=== PATIENT | female | born 1955 | race Caucasian/White ===

== ENCOUNTER 2017-11-29 15:04 | Emergency (ER) | payer MEDICARE, MEDICAID ==
[~2017-11-29] VITALS: Ht 162.6 cm; Wt 65.8 kg
[2017-11-29 15:45] LABS: BASOPHILS # (AUTO) 0.1 X10'3 (0-0.2); BASOPHILS % (AUTO) 0.7 % (0-1); EOSINOPHILS # (AUTO) 0.2 X10'3 (0-0.9); EOSINOPHILS % (AUTO) 2.2 % (0-6); HEMATOCRIT 41.6 % (35.0-45.0); HEMOGLOBIN 14.2 g/dl (12.0-16.0); LYMPHOCYTES % (AUTO) 27.6 % (21-51); MEAN CORPUSCULAR HEMOGLOBIN 30.4 PG (27.0-31.0); MEAN CORPUSCULAR HGB CONC 34.1 % (33.0-36.5); MEAN CORPUSCULAR VOLUME 89.1 FL (78-98); MEAN PLATELET VOLUME 8.3 FL (7.4-10.4); MONOCYTES # (AUTO) 0.4 X10'3 (0-0.9); MONOCYTES % (AUTO) 5.5 % (2-12); NEUTROPHILS # (AUTO) 4.6 X10'3 (1.8-7.7); PLATELET COUNT 285 X10'3 (140-440); RED BLOOD COUNT 4.67 X10'6 (4.20-5.60); RED CELL DISTRIBUTION WIDTH 13.5 % (11.5-14.5); WHITE BLOOD COUNT 7.2 X10'3 (4.5-11.0)
[2017-11-29 16:10] LABS: ALANINE AMINOTRANSFERASE 38 U/L (12-78); ALBUMIN 4.2 G/DL (3.4-5.0); ALBUMIN/GLOBULIN RATIO 1.1 (1.1-1.5); ALKALINE PHOSPHATASE 97 IU/L (46-116); ANION GAP 14 (8-16); ASPARTATE AMINO TRANSFERASE 14 U/L (10-37); BILIRUBIN,TOTAL 0.3 MG/DL (0.1-1.0); BLOOD UREA NITROGEN 21 MG/DL (7-18); BUN/CREATININE RATIO 22.6 (6.6-38.0); CALCIUM 9.4 MG/DL (8.5-10.1); CHLORIDE 104 MMOL/L (99-107); CREATININE 0.93 MG/DL (0.40-0.90); GLUCOSE 89 MG/DL (70-104); POTASSIUM 3.8 MMOL/L (3.5-5.1); SODIUM 143 MMOL/L (135-145); TOTAL CARBON DIOXIDE 25.4 MMOL/L (24-32); TOTAL PROTEIN 8.1 G/DL (6.4-8.2); eGFR 61 ML/MIN
[2017-11-29] MEDS ORDERED: ketorolac trometh inj. 60 MG/2 ML VIAL IM ONE (17:40)
[2017-11-29] MEDS ORDERED: OMEP40CA37 PO (18:45)
[2017-11-29] MEDS ORDERED: IBUP-1985 PO (18:45)
[2017-11-29 18:57] VITALS: BP 102/69
== END 2017-11-29 18:59 | disposition home or self-care (01) ==
LOC: ER 15:04
DX: S29.012A Strain of muscle and tendon of back wall of thorax, initial encounter (principal); M81.0 Age-related osteoporosis without current pathological fracture; G43.909 Migraine, unspecified, not intractable, without status migrainosus; I95.9 Hypotension, unspecified; Z87.442 Personal history of urinary calculi; Z88.5 Allergy status to narcotic agent; Z79.899 Other long term (current) drug therapy; X58.XXXA Exposure to other specified factors, initial encounter; Y93.89 Activity, other specified; Y92.89 Other specified places as the place of occurrence of the external cause; Y99.8 Other external cause status
CPT/HCPCS: 36415; 71046; 80053; 83880; 84484; 85025; 93005; 96372; 99285; J1885

== ENCOUNTER 2021-07-02 09:40 | Inpatient (IN) | payer MEDICARE, MEDICAID ==
[~2021-07-02] VITALS: Ht 162.6 cm; Wt 65.0 kg
[~2021-07-02 09:40] MED LIST: IBUP-1985 PO
[2021-07-02] MEDS ORDERED: dexamethasone inj 8 MG in normal saline 50ml IV soln 50 ML IV SCH (11:30)
[2021-07-02 12:15] LABS: BASOPHILS % (AUTO) 0.4 % (0-1); EOSINOPHILS % (AUTO) 0 % (0-6); HEMATOCRIT 39.1 % (35.0-45.0); HEMOGLOBIN 12.9 g/dl (12.0-16.0); LYMPHOCYTES # (AUTO) 0.7 X10'3 (1.1-4.8); LYMPHOCYTES % (AUTO) 12.5 % (21-51); MEAN CORPUSCULAR HEMOGLOBIN 29.9 PG (27.0-31.0); MEAN CORPUSCULAR HGB CONC 33.1 g/dL (33.0-36.5); MEAN CORPUSCULAR VOLUME 90.6 FL (78-98); MEAN PLATELET VOLUME 9.2 FL (7.4-10.4); MONOCYTES # (AUTO) 0.3 X10'3 (0-0.9); MONOCYTES % (AUTO) 5.1 % (2-12); NEUTROPHILS # (AUTO) 4.8 X10'3 (1.8-7.7); PLATELET COUNT 206 X10'3 (140-440); RED BLOOD COUNT 4.32 X10'6 (4.20-5.60); RED CELL DISTRIBUTION WIDTH 13.4 % (11.5-14.5); WHITE BLOOD COUNT 5.8 X10'3 (4.5-11.0)
[2021-07-02 12:22] LABS: ALANINE AMINOTRANSFERASE 64 U/L (12-78); ALBUMIN 2.8 G/DL (3.4-5.0); ALBUMIN/GLOBULIN RATIO 0.8 (1.1-1.5); ALKALINE PHOSPHATASE 69 IU/L (46-116); ANION GAP 9 (8-16); ASPARTATE AMINO TRANSFERASE 61 U/L (10-37); BILIRUBIN,TOTAL 0.7 MG/DL (0.1-1.0); BLOOD UREA NITROGEN 19 MG/DL (7-18); BUN/CREATININE RATIO 20.4 (6.6-38.0); CALCIUM 8.1 MG/DL (8.5-10.1); CHLORIDE 99 MMOL/L (99-107); CREATININE 0.93 MG/DL (0.40-0.90); GLUCOSE 101 MG/DL (70-104); POTASSIUM 3.3 MMOL/L (3.5-5.1); SODIUM 135 MMOL/L (135-145); TOTAL CARBON DIOXIDE 27.5 MMOL/L (24-32); TOTAL PROTEIN 6.4 G/DL (6.4-8.2); eGFR 61 ML/MIN
[2021-07-02 12:24] LABS: C-REACTIVE PROTEIN 6.15 MG/DL (0.0-0.5)
[2021-07-02] MEDS ORDERED: ELET20TA2 PO (13:04)
[2021-07-02] MEDS ORDERED: TOP100T PO (13:04)
[2021-07-02] MEDS ORDERED: SUMAtriptan 25 MG tablet PO PRN (13:10)
[2021-07-02] MEDS ORDERED: ondansetron/PF 4mg/2ml inj IV PRN (13:15)
[2021-07-02] MEDS ORDERED: acetaminophen 325mg tablet PO PRN ×2 (13:15)
[2021-07-02] MEDS ORDERED: ALBUTEROL INHALER 1 PUFF/90 MCG INHALER IH PRN (13:15)
[2021-07-02] MEDS ORDERED: mag hydrox/Alum hydrox/simeth 30ml oral suspension PO PRN (13:15)
[2021-07-02] MEDS ORDERED: oxyCODONE/APAP 5-325mg tablet PO PRN (13:15)
[2021-07-02] MEDS ORDERED: acetaminophen 325mg tablet PO ONE (13:15)
[2021-07-02] MEDS ORDERED: magnesium 4gm in 100ml NS 100 ML IV PRN (13:15)
[2021-07-02] MEDS ORDERED: potassium Cl 20 mEq SR tablet PO PRN (13:15)
[2021-07-02] MEDS ORDERED: magnesium 2GM in 50ml NS 50 ML IV PRN (13:15)
[2021-07-02] MEDS ORDERED: oxyCODONE/APAP 10/325mg tablet PO PRN (13:15)
[2021-07-02] MEDS ORDERED: REMDESIVIR INJ 200 MG in normal saline 100ml IV soln 60 ML IV ONE (13:15)
[2021-07-02] MEDS ORDERED: bisacodyl 10mg suppository rectal RC PRN (13:15)
[2021-07-02] MEDS ORDERED: potassium Cl 40MEQ/1/2NS 520ml 520 ML IV PRN ×2 (13:15)
[2021-07-02 13:37] LABS: D-DIMER 1.12 MG/L FEU (0-0.50)
[2021-07-02] MEDS: potassium Cl 20mEq in NS 1,000 ML IV SCH ×2 (16:07→23:15)
[2021-07-02] MEDS: potassium Cl 20 mEq SR tablet PO PRN (16:08)
[2021-07-02] MEDS ORDERED: normal saline 1000ml 1,000 ML IV ONE (17:45)
[2021-07-02 20:00] VITALS: BP 116/70
[2021-07-02] MEDS: docusate sod 100mg capsule PO SCH (20:00)
[2021-07-02] MEDS: K and/or MAG REPLACEMENT MC SCH (20:00)
[2021-07-02] MEDS: enoxaparin 40mg/0.4ml syringe SQ SCH (21:53)
[2021-07-02 22:00] VITALS: BP 92/59
[2021-07-02] MEDS: dexamethasone inj 6 MG in normal saline 50ml IV soln 50 ML IV SCH (23:03)
[2021-07-03 02:00] VITALS: BP 97/62
[2021-07-03 05:59] VITALS: BP 92/57
--- NOTE | 2021-07-03 07:00 | NUR ---
Patient in room [facility]TH[facility] 4009. I have received report from Shanel RN and had the opportunity to ask questions and assume patient care.
[2021-07-03] MEDS: K and/or MAG REPLACEMENT MC SCH ×2 (08:00→20:00)
[2021-07-03] MEDS: docusate sod 100mg capsule PO SCH ×2 (08:00→20:00)
[2021-07-03 08:16] LABS: EOSINOPHILS % (AUTO) 0 % (0-6); LYMPHOCYTES # (AUTO) 0.7 X10'3 (1.1-4.8); MONOCYTES # (AUTO) 0.2 X10'3 (0-0.9); NEUTROPHILS # (AUTO) 2.4 X10'3 (1.8-7.7)
[2021-07-03 08:18] LABS: BASOPHILS % (AUTO) 0.8 % (0-1); HEMATOCRIT 38.4 % (35.0-45.0); HEMOGLOBIN 12.5 g/dl (12.0-16.0); LYMPHOCYTES % (AUTO) 21.2 % (21-51); MEAN CORPUSCULAR HEMOGLOBIN 29.5 PG (27.0-31.0); MEAN CORPUSCULAR HGB CONC 32.6 g/dL (33.0-36.5); MEAN CORPUSCULAR VOLUME 90.5 FL (78-98); MEAN PLATELET VOLUME 9.1 FL (7.4-10.4); PLATELET COUNT 268 X10'3 (140-440); RED BLOOD COUNT 4.25 X10'6 (4.20-5.60); RED CELL DISTRIBUTION WIDTH 13.4 % (11.5-14.5); WHITE BLOOD COUNT 3.3 X10'3 (4.5-11.0)
--- NOTE | 2021-07-03 08:32 | NUR ---
PHONED PHARMACY, RN STILL WAITING FOR REMDESIVIR AND DECADRON IV INFUSIONS- THEY WILL BRING TO FLOOR IN A BIT. WILL CONTINUE TO MONITOR.
[2021-07-03] MEDS: potassium Cl 20mEq in NS 1,000 ML IV SCH ×2 (08:36→20:07)
[2021-07-03] MEDS: topiramate 100mg tablet PO SCH (08:37)
[2021-07-03] MEDS: potassium Cl 20 mEq SR tablet PO PRN (08:39)
[2021-07-03 08:48] LABS: ALANINE AMINOTRANSFERASE 86 U/L (12-78); ALBUMIN 2.3 G/DL (3.4-5.0); ALBUMIN/GLOBULIN RATIO 0.6 (1.1-1.5); ALKALINE PHOSPHATASE 65 IU/L (46-116); ANION GAP 13 (8-16); ASPARTATE AMINO TRANSFERASE 61 U/L (10-37); BILIRUBIN,TOTAL 0.5 MG/DL (0.1-1.0); BLOOD UREA NITROGEN 18 MG/DL (7-18); BUN/CREATININE RATIO 25.4 (6.6-38.0); C-REACTIVE PROTEIN 7.21 MG/DL (0.0-0.5); CHLORIDE 106 MMOL/L (99-107); CREATININE 0.71 MG/DL (0.40-0.90); GLUCOSE 117 MG/DL (70-104); MAGNESIUM 2.7 MG/DL (1.5-2.4); POTASSIUM 3.8 MMOL/L (3.5-5.1); SODIUM 143 MMOL/L (135-145); TOTAL PROTEIN 6.1 G/DL (6.4-8.2); eGFR 83 ML/MIN
[2021-07-03 09:09] LABS: D-DIMER 0.75 MG/L FEU (0-0.50)
[2021-07-03] MEDS: REMDESIVIR INJ 100 MG in normal saline 100ml IV soln 80 ML IV SCH (09:32)
[2021-07-03] MEDS: dexamethasone inj 6 MG in normal saline 50ml IV soln 50 ML IV SCH ×2 (09:32→20:10)
[2021-07-03 10:00] VITALS: BP 95/59
--- NOTE | 2021-07-03 10:13 | NUR ---
Malnutrition Consult: Pt admit DX COVID-19 PNA w/ acute respiratory failure per DO note. Hx fatigue, N/V, and diarrhea 10 days [employer] in addition to little/no PO intake 6-7 days [employer]NA[employer] per EMR. RD attempted to contact pt via TC however no answer. RD also attempted to contact pt child and SO using contact information in chart however unable to reach anyone to obtain additional wt/PO hx. No scaled wt this admit. 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 Pt has no edema or wt hx though given current mild weakness in addition to reported PO hx meets minimum non-severe malnutrition criteria; DO notified. PO 25% first regular diet meal last night w/ diarrhea persisting per EMR; may benefit from anti-diarrheal if DO agreeable. RD recommends Ensure Enlive TIDWM for additional protein/kcals given inadequate intake hx; DO notified. Currently on 4L NC per EMR. Will continue to monitor for additional protein/kcal needs this admit. Rec: 1. continue regular diet; encourage PO 2. Ensure Enlive TIDWM; pending physician verification in EMR. IF PO intake improves consider change to Ensure High Protein 3. bowel care per rx; consider anti-diarrheal if diarrhea persists 4. scaled wt this admit; subsequent weekly wts Addendum: 07/03/21 at [address] Amended: Links added.
--- NOTE | 2021-07-03 11:24 | NUR ---
SPOKE WITH FAMILY MEMBER, GILBERT, WITH PT'S PERMISSION- UPDATE GIVEN.
[2021-07-03] MEDS ORDERED: lactose-reduced food (Ensure Enlive) - 237ml bottle PO SCH (13:00)
[2021-07-03 14:00] VITALS: BP 95/52
[2021-07-03] MEDS: valacyclovir 500mg tablet PO SCH (16:53)
[2021-07-03 18:00] VITALS: BP 95/59
--- NOTE | 2021-07-03 18:31 | NUR ---
Problems reprioritized. Patient report given, questions answered & plan of care reviewed with Maria D SCHAEFFER.
[2021-07-03] MEDS: enoxaparin 40mg/0.4ml syringe SQ SCH (20:10)
[2021-07-03 22:00] VITALS: BP 85/51
[2021-07-04] MEDS: valacyclovir 500mg tablet PO SCH ×4 (00:04→23:50)
[2021-07-04 02:00] VITALS: BP 84/48
[2021-07-04 06:00] VITALS: BP 80/47
--- NOTE | 2021-07-04 06:28 | NUR ---
Patient in room [facility]TH[facility] 4009. I have received report from MAKSIM Killian and had the opportunity to ask questions and assume patient care.
--- NOTE | 2021-07-04 06:37 | NUR ---
Problems reprioritized. Patient report given, questions answered & plan of care reviewed with MAKSIM Coy.
[2021-07-04] MEDS: K and/or MAG REPLACEMENT MC SCH ×2 (08:00→20:00)
[2021-07-04] MEDS: docusate sod 100mg capsule PO SCH ×2 (08:00→20:18)
[2021-07-04] MEDS: dexamethasone inj 6 MG in normal saline 50ml IV soln 50 ML IV SCH ×2 (08:27→20:18)
[2021-07-04] MEDS: potassium Cl 20mEq in NS 1,000 ML IV SCH ×3 (08:27→23:53)
[2021-07-04] MEDS: REMDESIVIR INJ 100 MG in normal saline 100ml IV soln 80 ML IV SCH (08:27)
[2021-07-04] MEDS: topiramate 100mg tablet PO SCH (08:27)
[2021-07-04 08:50] LABS: BASOPHILS % (AUTO) 0.1 % (0-1); EOSINOPHILS % (AUTO) 0 % (0-6); HEMATOCRIT 38.1 % (35.0-45.0); HEMOGLOBIN 12.5 g/dl (12.0-16.0); LYMPHOCYTES # (AUTO) 0.9 X10'3 (1.1-4.8); LYMPHOCYTES % (AUTO) 10.9 % (21-51); MEAN CORPUSCULAR HEMOGLOBIN 29.6 PG (27.0-31.0); MEAN CORPUSCULAR HGB CONC 32.8 g/dL (33.0-36.5); MEAN CORPUSCULAR VOLUME 90.1 FL (78-98); MEAN PLATELET VOLUME 9.7 FL (7.4-10.4); MONOCYTES # (AUTO) 0.5 X10'3 (0-0.9); MONOCYTES % (AUTO) 5.3 % (2-12); NEUTROPHILS # (AUTO) 7.2 X10'3 (1.8-7.7); NEUTROPHILS % (AUTO) 83.7 % (42-75); PLATELET COUNT 316 X10'3 (140-440); RED BLOOD COUNT 4.23 X10'6 (4.20-5.60); RED CELL DISTRIBUTION WIDTH 13.7 % (11.5-14.5); WHITE BLOOD COUNT 8.6 X10'3 (4.5-11.0)
[2021-07-04 08:55] LABS: D-DIMER 0.67 MG/L FEU (0-0.50)
[2021-07-04 09:24] LABS: ALANINE AMINOTRANSFERASE 243 U/L (12-78); ALBUMIN 2.5 G/DL (3.4-5.0); ALBUMIN/GLOBULIN RATIO 0.8 (1.1-1.5); ALKALINE PHOSPHATASE 77 IU/L (46-116); ANION GAP 10 (8-16); ASPARTATE AMINO TRANSFERASE 197 U/L (10-37); BILIRUBIN,TOTAL 0.5 MG/DL (0.1-1.0); BLOOD UREA NITROGEN 18 MG/DL (7-18); BUN/CREATININE RATIO 27.3 (6.6-38.0); C-REACTIVE PROTEIN 3.45 MG/DL (0.0-0.5); CALCIUM 8.4 MG/DL (8.5-10.1); CHLORIDE 110 MMOL/L (99-107); CREATININE 0.66 MG/DL (0.40-0.90); GLUCOSE 140 MG/DL (70-104); MAGNESIUM 2.5 MG/DL (1.5-2.4); SODIUM 142 MMOL/L (135-145); TOTAL CARBON DIOXIDE 22.1 MMOL/L (24-32); TOTAL PROTEIN 5.8 G/DL (6.4-8.2); eGFR 90 ML/MIN
[2021-07-04 10:00] VITALS: BP 88/52
[2021-07-04 14:00] VITALS: BP 85/46
--- NOTE | 2021-07-04 17:42 | NUR ---
Pt refused 1700 vital signs. Addendum: 07/04/21 at 1743 by Anneliese Hernandez RN Amended: Links added.
--- NOTE | 2021-07-04 18:35 | NUR ---
Problems reprioritized. Patient report given, questions answered & plan of care reviewed with MAKSIM Killian and aaliyah Rush RN.
[2021-07-04] MEDS: enoxaparin 40mg/0.4ml syringe SQ SCH (20:18)
[2021-07-04 22:00] VITALS: BP 85/49
[2021-07-05 02:00] VITALS: BP 89/42
--- NOTE | 2021-07-05 06:27 | NUR ---
Problems reprioritized. Patient report given, questions answered & plan of care reviewed with MAKSIM Gomez.
--- NOTE | 2021-07-05 06:39 | NUR ---
Patient in room [facility]TH[facility] 4009. I have received report from faustina uriarte and had the opportunity to ask questions and assume patient care.
[2021-07-05 06:54] VITALS: BP 90/56
[2021-07-05 07:52] LABS: EOSINOPHILS % (AUTO) 0 % (0-6); HEMOGLOBIN 12.4 g/dl (12.0-16.0); MEAN CORPUSCULAR VOLUME 90.4 FL (78-98)
[2021-07-05 07:55] LABS: BASOPHILS % (AUTO) 0.4 % (0-1); HEMATOCRIT 37.3 % (35.0-45.0); LYMPHOCYTES # (AUTO) 0.9 X10'3 (1.1-4.8); LYMPHOCYTES % (AUTO) 13.1 % (21-51); MEAN CORPUSCULAR HGB CONC 33.1 g/dL (33.0-36.5); MEAN PLATELET VOLUME 9.1 FL (7.4-10.4); MONOCYTES # (AUTO) 0.4 X10'3 (0-0.9); MONOCYTES % (AUTO) 6.2 % (2-12); NEUTROPHILS # (AUTO) 5.5 X10'3 (1.8-7.7); NEUTROPHILS % (AUTO) 80.3 % (42-75); PLATELET COUNT 356 X10'3 (140-440); RED BLOOD COUNT 4.13 X10'6 (4.20-5.60); RED CELL DISTRIBUTION WIDTH 13.8 % (11.5-14.5); WHITE BLOOD COUNT 6.9 X10'3 (4.5-11.0)
[2021-07-05] MEDS: valacyclovir 500mg tablet PO SCH ×2 (08:00→16:00)
[2021-07-05] MEDS: K and/or MAG REPLACEMENT MC SCH (08:00)
[2021-07-05 08:03] LABS: D-DIMER 0.73 MG/L FEU (0-0.50)
[2021-07-05 08:12] LABS: ALANINE AMINOTRANSFERASE 470 U/L (12-78); ALBUMIN 2.5 G/DL (3.4-5.0); ALBUMIN/GLOBULIN RATIO 0.8 (1.1-1.5); ALKALINE PHOSPHATASE 85 IU/L (46-116); ANION GAP 8 (8-16); ASPARTATE AMINO TRANSFERASE 189 U/L (10-37); BILIRUBIN,TOTAL 0.5 MG/DL (0.1-1.0); BLOOD UREA NITROGEN 16 MG/DL (7-18); BUN/CREATININE RATIO 21.3 (6.6-38.0); C-REACTIVE PROTEIN 1.97 MG/DL (0.0-0.5); CALCIUM 8.4 MG/DL (8.5-10.1); CHLORIDE 112 MMOL/L (99-107); CREATININE 0.75 MG/DL (0.40-0.90); GLUCOSE 144 MG/DL (70-104); MAGNESIUM 2.6 MG/DL (1.5-2.4); POTASSIUM 4.9 MMOL/L (3.5-5.1); SODIUM 144 MMOL/L (135-145); TOTAL CARBON DIOXIDE 23.8 MMOL/L (24-32); TOTAL PROTEIN 5.8 G/DL (6.4-8.2); eGFR 78 ML/MIN
[2021-07-05] MEDS: docusate sod 100mg capsule PO SCH (08:54)
[2021-07-05] MEDS: topiramate 100mg tablet PO SCH (08:54)
[2021-07-05] MEDS: dexamethasone inj 6 MG in normal saline 50ml IV soln 50 ML IV SCH (08:55)
[2021-07-05] MEDS: REMDESIVIR INJ 100 MG in normal saline 100ml IV soln 80 ML IV SCH (08:55)
[2021-07-05 10:00] VITALS: BP 89/53
[2021-07-05] MEDS: potassium Cl 20mEq in NS 1,000 ML IV SCH (11:15)
[2021-07-05] MEDS ORDERED: APIX5TAB3 PO (12:26)
[2021-07-05] MEDS ORDERED: DEC4T PO (12:26)
[2021-07-05] MEDS ORDERED: ALBU6.7H9 IH (12:26)
--- NOTE | 2021-07-05 13:50 | NUR ---
O2 Sat at rest on room air:_92__% If below 89%: Recovery O2 Sat at rest on ___LPM:___%:___% via (mask/nasal cannula, etc..) No further documentation is necessary. If O2 Sat did not drop below 89% on room air,ambulate patient on room air. O2 Sat while ambulating on room air:_87__% Recovery O2 Sat while ambulating on __3_LPM:__94_% No further documentation is necessary. If patient does not drop below 89% while ambulating, he/she does not qualify for home O2.
[2021-07-05 14:00] VITALS: BP 96/53
--- NOTE | 2021-07-05 18:21 | NUR ---
PT DISCHARGED IN STABLE CONDITION. LEFT FACILITY IN PRIVATE VEHICLE WITH SON. IV DC CANULA INTACT. ALL BELONGINGS IN HAND INCLUDING 02. FOLLOW UP INSTRUCTIONS GIVEN, ALL QUESTIONS ANSWERED. Addendum: 07/05/21 at 1822 by Isabel Pink RN Amended: Links added.
== END 2021-07-05 18:21 | disposition home health service (06) | DRG 177 ==
LOC: ER 09:41 → ED HOLD 13:21 → ORTHO 4S 19:36
PROVIDERS: ADMIT Family Medicine; ATTEND Family Medicine
PROC: XW033E5 Introduction of Remdesivir Anti-infective into Peripheral Vein, Percutaneous Approach, New Technology Group 5 (ICD-10-PCS; principal; 2021-07-02)
PROC: 5A0935A Assistance with Respiratory Ventilation, Less than 24 Consecutive Hours, High Flow/Velocity Cannula (ICD-10-PCS; 2021-07-04)
DX: U07.1 COVID-19 (principal); J12.82 Pneumonia due to coronavirus disease 2019; J96.01 Acute respiratory failure with hypoxia; N17.9 Acute kidney failure, unspecified; D68.59 Other primary thrombophilia; E87.6 Hypokalemia; G43.909 Migraine, unspecified, not intractable, without status migrainosus; R74.01 Elevation of levels of liver transaminase levels; I10 Essential (primary) hypertension; I95.89 Other hypotension; M81.0 Age-related osteoporosis without current pathological fracture; Z79.01 Long term (current) use of anticoagulants; Z79.899 Other long term (current) drug therapy; Z80.1 Family history of malignant neoplasm of trachea, bronchus and lung; Z80.8 Family history of malignant neoplasm of other organs or systems; Z82.49 Family history of ischemic heart disease and other diseases of the circulatory system; Z87.442 Personal history of urinary calculi; Z88.5 Allergy status to narcotic agent
CPT/HCPCS: 36415; 71045; 80053; 83735; 83880; 84145; 85025; 85379; 85610; 86140; 87081; 94760; 97110; 97161; 97530; 99285; G0378; J1100; J1650; J3480; J7030